=== PATIENT | female | born 1955 | race Hispanic/Latino ===

== ENCOUNTER 2018-06-15 15:59 | Outpatient (CLI) | payer OTHER ==
--- NOTE | 2018-06-15 16:24 | RAD ---
XR Knee Rt 4 View STANDARD: 06/15/2018 12:00 AM CLINICAL INDICATION: Pain COMPARISON: None. FINDINGS: Fracture:No fracture. Arthropathy:Mild arthropathy. Incidental findings:Vascular calcification Anterior soft tissue prominence is present IMPRESSION: 1. No acute osseous abnormality. 2. Prominent anterior soft tissues. Correlate with physical exam.
== END 2018-06-15 16:00 | disposition home or self-care (01) ==
LOC: BICRAD 15:59
PROVIDERS: ATTEND Family Medicine
DX: M25.561 Pain in right knee (principal)

== ENCOUNTER 2020-11-04 23:24 | Emergency (ER) | payer SELFPAY ==
[2020-11-05] MEDS ORDERED: Acetaminophen 500 MG TAB ONE (00:01)
== END 2020-11-05 00:15 | disposition home or self-care (01) ==
LOC: ERS 23:24
DX: S46.912A Strain of unspecified muscle, fascia and tendon at shoulder and upper arm level, left arm, initial encounter (principal); I10 Essential (primary) hypertension; E78.5 Hyperlipidemia, unspecified; E11.9 Type 2 diabetes mellitus without complications; M19.90 Unspecified osteoarthritis, unspecified site; W19.XXXA Unspecified fall, initial encounter; Y93.01 Activity, walking, marching and hiking; Y92.009 Unspecified place in unspecified non-institutional (private) residence as the place of occurrence of the external cause; Z87.891 Personal history of nicotine dependence
CPT/HCPCS: 99283

== ENCOUNTER 2021-07-15 15:15 | Outpatient (CLI) | payer OTHER | END 2021-07-15 15:16 | disposition home or self-care (01) | LOC: BICRAD 15:15 | PROVIDERS: ATTEND Family Medicine | DX: M54.50 Low back pain, unspecified (principal); M47.816 Spondylosis without myelopathy or radiculopathy, lumbar region | CPT/HCPCS: 72072; 72100 ==

== ENCOUNTER 2022-12-19 11:57 | Outpatient (CLI) | payer OTHER | END 2022-12-19 11:58 | disposition home or self-care (01) | LOC: BICRAD 11:57 | PROVIDERS: ATTEND Family Medicine | DX: M54.6 Pain in thoracic spine (principal); M54.50 Low back pain, unspecified; M47.814 Spondylosis without myelopathy or radiculopathy, thoracic region; M47.816 Spondylosis without myelopathy or radiculopathy, lumbar region | CPT/HCPCS: 72072; 72100 ==